=== PATIENT | female | born 1980 | race Hispanic/Latino ===

== ENCOUNTER → 2018-03-04 | Emergency (ER) | payer SELFPAY ==
--- NOTE | 2018-03-04 18:13 | OBHP ---
Datetime: 03/04/2018 18:04 IP Adm Impression: Term, intrauterine IP Chief Complaint Other: NST not well reactive at [facility] IP Admit Plan: Observation/Evaluation Admit Comment, IP Provider: seen in [facility] dept ad had mild IUGR but BPP good and NST done and not very reactive and pt sent to L/D for prolonged NST Prolonged tracing showed no decels and good accelerati ons noted and pt for repeat BPP on Thursday Denies pains or UC and was given specific instructions to c all immediatly if UC, pains, ROM, bleeding, decreased FM etc She voices full understanding and agreed Extremities - PN: Normal Abdomen - PN: Abnormal Breast - PN: Normal Lungs - PN: Normal Thyroid - PN: Normal Neurologic - PN: Normal HEENT - PN: Normal General - PN: Normal FHR - Baseline A Provider: 150 Comments, ACOG Physical Exam: ABd gravid NT FM+ Gestation - Est Wks by US: 37 wks IP Hx Assessment: The History has been Reviewed and is Current EGA AdmitDate IP: 37.2 Vital Signs Provider: Reviewed IP Chief Complaint: Other NICHD Variability Prov Fetus A: Moderate 6-25bpm NICHD Accel Fetus A IP Provider: 10X10 NICHD Decel Fetus A IP Provider: None
[2018-03-04 22:31] VITALS: BP 107/78; PULSE 98; TEMP 98.3; O2SAT 99
== END | disposition home or self-care (01) ==
LOC: H.EROB2 14:50
DX: O36.5930 Maternal care for other known or suspected poor fetal growth, third trimester, not applicable or unspecified (principal); Z3A.37 37 weeks gestation of pregnancy

== ENCOUNTER 2018-03-08 09:53 | Inpatient (IN) | payer SELFPAY ==
[2018-03-08 10:09] VITALS: BMI 25.6
[2018-03-08] MEDS ORDERED: Lactated Ringer's 2,000 ML IV ONE (10:13)
[2018-03-08] MEDS ORDERED: Lactated Ringer's 1,000 ML IV ONE (11:15)
[2018-03-08 11:17] LABS: BASO % 0.7 % (0.0-2.0); EOS # 0.1 K/uL (0.0-0.7); EOS % 1.1 % (0.0-4.0); HEMOGLOBIN 10.7 g/dL (12.0-16.0); LYMPH # 1.4 K/uL (1.0-4.3); LYMPH % 22.7 % (20.0-40.0); MEAN CELL VOLUME 89.7 fl (81.0-99.0); MEAN CORPUSCULAR HEMOGLOBIN 31.3 pg (27.0-31.0); MEAN CORPUSCULAR HGB CONC 34.9 g/dL (33.0-37.0); MEAN PLATELET VOLUME 9.2 fl (7.2-11.7); MONO # 0.6 K/uL (0.0-0.8); MONO % 9.7 % (0.0-10.0); NEUT # 4.1 K/uL (1.8-7.0); NEUT % 65.8 % (50.0-75.0); RBC 3.42 Mil/uL (3.80-5.20); RED CELL DISTRIBUTION WIDTH 14.8 % (11.5-14.5); WHITE BLOOD COUNT 6.2 K/uL (4.8-10.8)
[2018-03-08] MEDS ORDERED: cefOXitin Sodium 1 GM in Sodium Chloride 0.9% 100 ML IVPB ONE (11:30)
[2018-03-08] MEDS ORDERED: Lactated Ringer's 1,000 ML IV SCH ×2 (15:45→22:08)
[2018-03-08] MEDS ORDERED: Oxytocin 30 units/LR 500ML 30 U/500 ML BAG IV ONE (16:00)
--- NOTE | 2018-03-08 17:52 | OBADHP ---
Datetime: 03/08/2018 17:46 IP Chief Complaint Other: IUGR/Prev c/s IP Adm Impression Other: IUGR/prev C/S Admit Comment, IP Provider: GBS neg IUGR and perinatologist suggest delivery Extremities - PN: Normal Abdomen - PN: Abnormal Breast - PN: Normal Lungs - PN: Normal Heart - PN: Normal Thyroid - PN: Normal Neurologic - PN: Normal HEENT - PN: Normal General - PN: Normal FHR - Baseline A Provider: 150's Membranes, Provider: Intact Contraction Comments Provider: irregular Comments, ACOG Physical Exam: Abd soft NT gravid Ext no calf tenderness Gestation - Est Wks by US: 37+ IP Hx Assessment: The History has been Reviewed and is Current NICHD Variability Prov Fetus A: Minimal - Undetectable to <5bpm NICHD Accel Fetus A IP Provider: 10X10 NICHD Decel Fetus A IP Provider: None Dilatation, Provider: one Genitourinary Exam: Normal DTRs - PN: Normal IP Adm Impression: Term, intrauterine IP Admit Plan: Admit to unit; Initiate Section protocol Datetime: 03/04/2018 18:04 Vital Signs Provider: Reviewed IP Chief Complaint: Other EGA AdmitDate IP: 37.2
[2018-03-08] MEDS ORDERED: Morphine 1 mg/ml preservative-free Inj(Duramorph) ONE (18:06)
[2018-03-08] MEDS ORDERED: Phenylephrine 10 mg/ml Inj ONE (18:08)
[2018-03-08] MEDS ORDERED: Triamcinolone Acetonide 40 mg/mL Inj IM ONE (18:20)
[2018-03-08] MEDS ORDERED: DiphenhydrAMINE 50 mg/ml Inj IVP PRN ×2 (18:53→22:08)
--- NOTE | 2018-03-08 19:37 | OBDS ---
DELIVERY PERSONNEL Delivery Doctor: Page Lynn MD Corrections Officer: Madelyn Junior RN Anesthesiologist: Page Clark MD MATERNAL INFORMATION Delivery Anesthesia: Spinal Medications in Delivery: Pitocin 30 mu/500 mL, Pitocin 20 mu/1000 mL Estimated Blood Loss (ml): 850 Placenta Cultured: No Maternal Complications: Other Other Maternal Complications: IUGR Provider Comments: see surgeons note dictated LABOR SUMMARY EDC: 03/23/2018 00:00 No. Babies in Womb: 1 Attempted: No Labor Anesthesia: None LABOR INFORMATION Reason for Induction: Not Applicable Group B Beta Strep: Negative Antibiotics # of Doses: 1 Antibiotics Time of Last Dose: 1735 Steroids Given: None Reason Steroids Not Administered: Not Applicable MEMBRANES Membranes Rupture Method: Artificial Rupture of Membranes: 03/08/2018 18:32 Length of Rupture (hrs): 0.00 Amniotic Fluid Color: Clear Amniotic Fluid Amount: Moderate Amniotic Fluid Odor: None VAGINAL DELIVERY Episiotomy: None Laceration Extension: N/A Sponge Count Correct: Yes Sharps Count Correct: Yes Count Comment: count correct x3 CSECTION DELIVERY Primary Indication: Repeat Elective Other Primary Indication: early labor Secondary Indication: IUGR CSection Urgency: Elective CSection Incidence: Repeat Labor: early Elective: Nonelective CSection Incision: Lower Uterine Transverse Uterine Closure: Double-layer closure BABY A INFORMATION Infant Delivery Date/Time: 03/08/2018 18:32 SHOULDER DYSTOCIA BABY A Infant Delivery Date/Time: 03/08/2018 18:32 PRESENTATION/POSITION BABY A Presentation: cephalic INFORMATION BABY A Gestational Age at Delivery: 37.6 Gestational Status: Infant Outcome : Liveborn Infant Condition : Stable Infant Sex: Male IDENTIFICATION/MEDS BABY A ID Band Number: [id number] WEIGHT/LENGTH BABY A Infant Birthweight (gms): 2640 Infant Weight (lb): 5 Weight (oz): 13 CORD INFORMATION BABY A No. Cord Vessels: 3 Nuchal Cord : N/A Suction: Mouth; Nose
[2018-03-08] MEDS ORDERED: Oxycodone/Acetaminophen 5/325 mg Tab PO PRN ×2 (19:39→22:08)
[2018-03-09] MEDS: cefOXitin IV 1 gm in Dextrose 1 GM/50 ML BAG IVPB SCH ×3 (00:22→17:33)
[2018-03-09] MEDS ORDERED: cefOXitin Sodium 1 GM in Sodium Chloride 0.9% 100 ML IVPB SCH (01:00)
[2018-03-09 06:12] LABS: HEMOGLOBIN 10.6 g/dL (12.0-16.0); MEAN CELL VOLUME 91.3 fl (81.0-99.0); MEAN CORPUSCULAR HEMOGLOBIN 31.8 pg (27.0-31.0); MEAN CORPUSCULAR HGB CONC 34.8 g/dL (33.0-37.0); RBC 3.33 Mil/uL (3.80-5.20); RED CELL DISTRIBUTION WIDTH 14.9 % (11.5-14.5); WHITE BLOOD COUNT 8.7 K/uL (4.8-10.8)
--- NOTE | 2018-03-09 10:37 | OBPPN ---
Datetime: 03/09/2018 10:30 PP Pain Prov: Within normal limits PP Pain Prov comment: No SOB, chest or leg pains PP Nausea Prov: Denies PP BM Prov: No PP Nausea Prov comment: voiding well PP Breasts Prov: Normal PP Heart Prov: Normal PP Lungs Prov: Normal PP Abdomen/Uterus Prov: Abnormal PP Lochia Prov: Normal PP Vulva/Perineum Prov: Normal PP CVA Tenderness Prov: Normal PP Extremities Prov: Normal PP C/S Incision Prov: Normal PP Progress Prov: Normal PP Comments Phys Exam Prov: breast NT, NE; Abd soft ND depressible dressing intact no sign of active bleeding; ext no calf tenderness PP Impression Prov: Normal progression PP Plan Prov: Continue present management PP Progress Note Prov: Increase diet as tolerated, OOB and ambulation and increase po fluids Contin ue po care. IP PP Procedures: None Vital Signs Provider PP: Reviewed
--- NOTE | 2018-03-10 08:04 | OBPPN ---
Datetime: 03/10/2018 08:00 PP Pain Prov: Within normal limits PP Pain Prov comment: no SOB, chest or leg pains PP Nausea Prov: Denies PP Flatus Prov: Yes PP BM Prov: No PP Breasts Prov: Normal PP Lungs Prov: Normal PP Abdomen/Uterus Prov: Abnormal PP Lochia Prov: Normal PP Vulva/Perineum Prov: Normal PP CVA Tenderness Prov: Normal PP Extremities Prov: Normal PP C/S Incision Prov: Normal PP Progress Prov: Normal PP Comments Phys Exam Prov: breast not engorged NT; Abd soft ND, fundus firm at umb Dressing removed and incision clean and dry no suppt or active bleeding; Ext no calf tenderness PP Impression Prov: Normal progression PP Plan Prov: Continue present management PP Progress Note Prov: CBC stable OOB and ambulation Dulcolax suppt this pm if no BM IP PP Procedures: None Vital Signs Provider PP: Reviewed
--- NOTE | 2018-03-10 19:34 | OP ---
PROCEDURE DATE: 03/08/2018 PREOPERATIVE DIAGNOSES: 1. at 37 plus weeks' gestation. 2. Previous section in early labor. 3. Intrauterine growth restriction. POSTOPERATIVE DIAGNOSES: same as pre-op PROCEDURE PERFORMED: Repeat low-transverse segment section. SURGEON: Steve Lynn MD ANALYTICAL SCIENCES DIRECTOR: Wendy Munoz MD, who was there for the entire duration of the case. Diazo Technician needed in delivering the baby, opening up the abdomen, and closure of the abdomen. ANESTHESIA USED: Spinal. ANESTHESIA ADMINISTERED BY: ESTIMATED BLOOD LOSS: 850 mL. DRAINS USED: None. REPLACEMENTS USED: None. FINDINGS: 1. Delivered a living baby boy, baby appears adequate for gestational age, baby cries spontaneously, pediatrist in attendance. score of 9 and 9. 2. Amniotic fluid clear. 3. Placenta complete and intact. 4. Both tubes and ovaries appear grossly within normal limits to inspection bilaterally. DESCRIPTION OF PROCEDURE: The patient was taken to the operating room and placed on the operating room table in a supine position. At this time, spinal anesthesia was then induced and the patient was then replaced in a supine position. A Gaytan catheter was then inserted into the bladder and clear fluid then evacuated from the bladder, and Venodyne boots were applied to both legs. Abdomen was then draped and prepped in the usual sterile manner. Anesthesia tested and found to be well secured, and a Pfannenstiel incision was then made along the edges of the previous incision. A small keloid scar was then removed and incision was then extended out to the subcutaneous tissue using sharp dissection. Hemostasis was obtained by means of electrocoagulation. At this time, the fascia was then identified, was then entered in the midline. The incision in the fascia was then extended laterally on each direction using sharp dissection. Following this, we then proceeded to identify the rectus muscle, which was then slid in the midline, exposing the peritoneum. Peritoneal layer was then picked up using two Cindy clamps and retracted superiorly and entered using sharp dissection. Incision was then extended superiorly and inferiorly under direct visualization. Adhesions of the bladder to the low-transverse segment of the uterus noted to be present. Some of these adhesions were lysed using sharp and blunt dissection. The bladder was then retracted inferiorly using the Wingate retractor. The visceroperitoneum above the low-transverse segment of the uterus was then entered and incision extended laterally on each direction. Using blunt dissection, a bladder flap was then created and retracted inferiorly using the same Wingate retractor. An incision was then made in the low-transverse segment of the uterus. Upon entering the uterine cavity, clear fluid noted to be present. At this time, we then proceeded to extend the incision laterally using bandage scissors. Using amnioscopy procedure, living baby boy was then delivered. The baby appears to be adequate for gestational age. The baby was immediately aspirated using a bulb suction. The baby cried spontaneously. Pediatrist was in attendance. The umbilicus was then doubly clamped, cut, and the baby handled to the pediatric personnel who was standing by. Samples of cord blood were then obtained and cord collection was then performed also and following this, the placenta was then delivered complete and intact. At this time, we then proceeded to exteriorize the uterus to provide better visualization, the uterine cavity was then thoroughly cleaned using moist lap pad. The uterus massaged and contracted well. Uterine incision was then secured using multiple T clamps and was then approximated using 0 Vicryl suture in a continuous interlocking manner. A second layer was also applied using 0 Vicryl suture in a continuous manner. Hemostasis was checked and found to be well secured. Following this, we then proceeded to notice that both tubes and ovaries appeared grossly within normal limits to inspection bilaterally and at this time we then proceeded to evacuate blood and free amniotic fluid from the pelvic cavity. The pelvic cavity was then thoroughly irrigated using saline solution. All operative areas checked, hemostatically secured, and the uterus was then allowed to retract back into its original position. A Surgicel was then placed on the low-transverse segment of the uterus by the bladder area to obtain complete hemostasis. Again, all operative areas checked, hemostatically secured and at this time, the peritoneum was then closed using 0 Vicryl suture in a continuous manner. Rectus muscle was then approximated in the midline using 0 Vicryl suture in a continuous manner. The fascia was then identified and was then approximated using 1 Vicryl suture in a continuous manner. Fascia was then checked and found to be free of defect. Subcutaneous tissue was then irrigated using saline solution and approximated using several interrupted 2-0 plain sutures. The skin was then approximated using a 3-0 Prolene in a subcuticular fashion. Steri-Strips were then applied and a solution of 40 mg of Kenalog in 20 mL of saline was then injected along the incisional area subcutaneously in order to prevent future keloid formation. The patient tolerated the procedure well. There were no complications. Clear fluid noted to be present in the Gaytan bag at this time. Sponge, instruments, and needle counts were correct x3. The patient tolerated the procedure well. There were no complications. She was transferred to the recovery room in satisfactory condition. Steve Lynn MD MTDD
--- NOTE | 2018-03-11 08:08 | OBPPN ---
Datetime: 03/11/2018 08:02 PP Pain Prov: Within normal limits PP Pain Prov comment: No SOB, chest or leg pains PP Nausea Prov: Denies PP Flatus Prov: Yes PP BM Prov: Yes PP Nausea Prov comment: Denies C/F PP Breasts Prov: Normal PP Lungs Prov: Normal PP Abdomen/Uterus Prov: Abnormal PP Lochia Prov: Normal PP Vulva/Perineum Prov: Normal PP CVA Tenderness Prov: Normal PP Extremities Prov: Normal PP C/S Incision Prov: Normal PP Progress Prov: Normal PP Comments Phys Exam Prov: Breast ne, nt; abd soft ND depressible fundus firm below the umb. Incis ion clean and dry no active bleeding or suppt sutures in place Ext no calf tenderness PP Impression Prov: Normal progression PP Plan Prov: Discharge PP Progress Note Prov: will d/C home with instructions and follow up office 1 wk IP PP Procedures: None Vital Signs Provider PP: Reviewed
--- NOTE | 2018-03-11 08:10 | OBDCSUM ---
Datetime: 03/11/2018 08:06 Discharged to, Provider: Home Follow up at, Provider: Dr Lynn Disch Instr Activity: Bedrest; May be up to bathroom; May be up for meals Disch Instr Diet: Regular Discharge Instructions, Provider: Routine instructions given Discharge Diagnosis, Provider: Term Delivered Discharge Time: 03/11/2018 08:06 Follow up in weeks, Provider: 1 wk Disch Referrals: None Contraception discussed, Prov: Yes Disch Activity Restrictions: No exercising; No lifting; No driving; Minimize walking; Minimize stair -climbing; No sexual activity; Nothing in vagina - [place], tampons, douche Discharge Comment, Provider: rx for Percocet given Continue PNC vit and iron Contraception after Delivery: Undecided
[2018-03-11 18:50] VITALS: BP 107/72; PULSE 75; RESP 19; TEMP 97.7; O2SAT 100
== END 2018-03-11 14:10 | disposition home or self-care (01) | DRG 765 ==
LOC: H.L&D 10:09 → H.OB/GYN 21:55
PROVIDERS: ADMIT Specialist; ATTEND Specialist
PROC: 10D00Z1 Extraction of Products of Conception, Low, Open Approach (ICD-10-PCS; principal; 2018-03-08)
PROC: 4A1HXCZ Monitoring of Products of Conception, Cardiac Rate, External Approach (ICD-10-PCS; 2018-03-08)
DX: O34.219 Maternal care for unspecified type scar from previous cesarean delivery (principal); O36.5930 Maternal care for other known or suspected poor fetal growth, third trimester, not applicable or unspecified; Z37.0 Single live birth; N85.8 Other specified noninflammatory disorders of uterus; Z3A.37 37 weeks gestation of pregnancy